=== PATIENT | female | born 1955 | race Caucasian/White ===

== ENCOUNTER 2019-04-26 17:47 | Emergency (ER) | payer MEDICARE, OTHER ==
--- NOTE | 2019-04-26 17:58 | ER Document Report ---
ED Cardiac - General Chief Complaint: Arrhythmia Stated Complaint: SHORTNESS OF BREATH Time Seen by Provider: 04/26/19 17:51 Mode of Arrival: Medic Information source: Patient - HPI Notes: Patient is brought in by ambulance due to an episode of SVT. Patient states she has had episodes of SVT since she was 17 years old. Last one was approximately 2 years ago. She states today she was in the bathroom when she suddenly felt her heart race and felt somewhat short of breath. She states that she tried the usual maneuvers such as carotid compression and ice with no relief. She then called the ambulance. Paramedics state they found the patient with a heart rate of 204 and administered stirred 12 of adenosine which abated the arrhythmia. Upon arrival patient states she feels fine and back to her usual state of health. She had palpitations but no pain. Symptoms were moderate. There is no radiation symptoms. They are made worse by exertion and better by rest. Sympt oms have now resolved. She denies any recent cough cold congestion. No history of DVT or PEs. No recent surgeries or long trips. - Related Data Allergies/Adverse Reactions: codeine Allergy (Verified 04/26/19 17:57) Past Medical History - General Information source: Patient - Social History Smoking Status: Never Smoker Frequency of alcohol use: None Drug Abuse: None Family History: Reviewed & Not Pertinent Review of Systems - Review of Systems Constitutional: denies: Chills, Fever Cardiovascular: Palpitations. denies: Chest pain Respiratory: denies: Cough, Short of breath Gastrointestinal: denies: Abdominal pain, Constipation -: Yes All other systems reviewed and negative Physical Exam - Vital signs Vitals: Temp Resp BP 98.6 F 15 109/71 04/26/19 17:56 04/26/19 17:56 04/26/19 17:56 Interpretation: Normal - General General appearance: Appears well, Alert - HEENT Head: Normocephalic, Atraumatic Eyes: Normal Pupils: PERRL - Respiratory Respiratory status: No respiratory distress Chest status: Nontender Breath sounds: Normal Chest palpation: Normal - Cardiovascular Rhythm: Regular Heart sounds: Normal auscultation Murmur: No - Abdominal Inspection: Normal Distension: No distension Bowel sounds: Normal Tenderness: Nontender Organomegaly: No organomegaly - Back Back: Normal, Nontender - Extremities General upper extremity: Normal inspection, Nontender, Normal color, Normal ROM, Normal temperature General lower extremity: Normal inspection, Nontender, Normal color, Normal ROM, Normal temperature, Normal weight bearing. No: Kristen's sign - Neurological Neuro grossly intact: Yes Cognition: Normal Orientation: AAOx4 [place] Coma Scale Eye Opening: Spontaneous [place] Coma Scale Verbal: Oriented [place] Coma Scale Motor: Obeys Commands [place] Coma Scale Total: 15 Speech: Normal Motor strength normal: LUE, RUE, LLE, RLE Sensory: Normal - Psychological Associated symptoms: Normal affect, Normal mood - Skin Skin Temperature: Warm Skin Moisture: Dry Skin Color: Normal Course - Re-evaluation Re-evalutation: 04/26/19 18:59 Patient reassessed at this time. She is resting comfortably in the bed with no complaints. Vital signs are stable. Work-up is unremarkable. I feel patient can be safely discharged home to follow-up as an outpatient. - Vital Signs Vital signs: Temp Pulse Resp BP Pulse Ox 98.6 F 22 H 98/58 L 96 04/26/19 17:56 04/26/19 18:17 04/26/19 18:17 04/26/19 18:17 - Laboratory Result Diagrams: 04/26/19 18:06 04/26/19 18:06 Laboratory results interpreted by me: 04/26/19 18:06 RDW 14.5 H - EKG Interpretation by Nv EKG shows normal: Sinus rhythm Rate: Normal - 83 Rhythm: NSR [place]/QRS: No: Right axis deviation, Left axis deviation Discharge - Discharge Clinical Impression: SVT (supraventricular tachycardia) Condition: Stable Disposition: HOME, SELF-CARE Instructions: Palpitations (Irregular or Rapid Heartrate) ([facility]) Additional Instructions: Please call your physician as soon as possible to arrange follow-up
[2019-04-26 18:19] LABS: ABSOLUTE EOSINOPHILS # (AUTO) 0.1 10^3/uL (0.0-0.6); ABSOLUTE LYMPHOCYTES (AUTO) 1.5 10^3/uL (0.5-4.7); ABSOLUTE MONOCYTES (AUTO) 0.6 10^3/uL (0.1-1.4); ABSOLUTE NEUT (AUTO) 5.6 10^3/uL (1.7-8.2); BASOPHILS % (AUTO) 0.5 % (0-2); EOSINOPHILS % (AUTO) 1.4 % (0-6); HEMATOCRIT 40.2 % (36.0-47.0); HEMOGLOBIN 13.2 g/dL (12.0-15.5); LYMPHOCYTES % (AUTO) 18.7 % (13-45); MEAN CORPUSCULAR HEMOGLOBIN 28.4 pg (27.0-33.4); MEAN CORPUSCULAR HGB CONC 32.8 g/dL (32.0-36.0); MEAN CORPUSCULAR VOLUME 87 fl (80-97); MONOCYTES % (AUTO) 7.7 % (3-13); PLATELET COUNT 167 10^3/uL (150-450); RED BLOOD COUNT 4.64 10^6/uL (3.72-5.28); RED CELL DISTRIBUTION WIDTH 14.5 % (11.5-14.0); SEGMENTED NEUTROPHILS % (AUTO) 71.7 % (42-78); TOTAL CELLS COUNTED % (AUTO) 100 %; WHITE BLOOD COUNT 7.8 10^3/uL (4.0-10.5)
[2019-04-26 18:48] LABS: ALBUMIN 3.7 g/dL (3.5-5.0); ALKALINE PHOSPHATASE 90 U/L (38-126); ANION GAP 9 (5-19); ASPARTATE AMINO TRANSFERASE 23 U/L (14-36); BILIRUBIN,DIRECT 0.3 mg/dL (0.0-0.4); BILIRUBIN,TOTAL 0.5 mg/dL (0.2-1.3); BLOOD UREA NITROGEN 17 mg/dL (7-20); CALCIUM 9.3 mg/dL (8.4-10.2); CARBON DIOXIDE 25 mmol/L (22-30); CHLORIDE 106 mmol/L (98-107); GLUCOSE 96 mg/dL (75-110); POTASSIUM 4.1 mmol/L (3.6-5.0); TOTAL PROTEIN 6.6 g/dL (6.3-8.2)
[2019-04-26 19:02] VITALS: BP 102/59
--- NOTE | 2019-04-27 23:27 | EKG REPORT ---
SEVERITY:- NORMAL ECG - SINUS RHYTHM : Confirmed by: Juan Pablo Jules 27-Apr-2019 23:26:27
== END 2019-04-26 19:15 | disposition home or self-care (01) ==
LOC: ER 17:47
DX: I47.1 Supraventricular tachycardia (principal); R06.02 Shortness of breath
CPT/HCPCS: 36415; 80053; 83735; 85025; 93005; 93010; 99285